=== PATIENT | male | born 1995 | race Two or more races ===

== ENCOUNTER 2016-11-04 08:32 | Emergency (ER) | payer OTHER ==
[~2016-11-04] VITALS: Ht 170.2 cm; Wt 95.3 kg
[~2016-11-04 08:32] MED LIST: PANT40TA2 PO; SUCR1TAB26 PO
[2016-11-04 08:37] VITALS: BP 135/70
== END 2016-11-04 09:22 | disposition home or self-care (01) ==
LOC: ER 08:33
DX: B35.1 Tinea unguium (principal); I86.1 Scrotal varices; J45.909 Unspecified asthma, uncomplicated; Z87.11 Personal history of peptic ulcer disease; Z87.19 Personal history of other diseases of the digestive system; Z87.442 Personal history of urinary calculi
CPT/HCPCS: A4606; Z7610

== ENCOUNTER 2018-01-29 02:25 | Emergency (ER) | payer SELFPAY ==
[~2018-01-29] VITALS: Ht 175.3 cm; Wt 81.6 kg
[~2018-01-29 02:25] MED LIST changes: -SUCR1TAB26 PO; +SUCR1TAB31 PO
--- NOTE | 2018-01-29 02:25 | NUR ---
worsening back pain x 1 month. denies trauma. VSS NAD A/OX4 ABLE TO MAKE NEEDS KNOWN. WILL CONTINUE TO MONITOR FOR ANY CHANGES DURING THE SHIFT.
[2018-01-29] MEDS ORDERED: HYDROCODONE/APAP 10/325MG 1 EA TABLET PO ONE (03:00)
[2018-01-29] MEDS ORDERED: HYDROCODONE/APAP 10/325MG 1 EA TABLET ONE (03:07)
--- NOTE | 2018-01-29 03:11 | NUR ---
OFF TO CT
[2018-01-29 04:47] VITALS: BP 135/79
== END 2018-01-29 04:48 | disposition home or self-care (01) ==
LOC: ER 02:25
DX: M54.32 Sciatica, left side (principal); M54.31 Sciatica, right side; J45.909 Unspecified asthma, uncomplicated; Z87.442 Personal history of urinary calculi; Z88.6 Allergy status to analgesic agent; Z87.11 Personal history of peptic ulcer disease; Z79.899 Other long term (current) drug therapy
CPT/HCPCS: 72131; 99284; A4606; Z7610

== ENCOUNTER 2019-05-10 21:14 | Emergency (ER) | payer SELFPAY ==
[~2019-05-10] VITALS: Ht 172.7 cm; Wt 97.5 kg
[2019-05-10 21:20] VITALS: BP 127/78
[2019-05-10] MEDS ORDERED: KETOROLAC TROMETHAMINE INJ 30 MG/ML VIAL ONE (21:39)
[2019-05-10 21:45] LABS: APPEARANCE,URINE Clear (CLEAR); BILIRUBIN,URINE SMALL (NEGATIVE); BLOOD, URINE Negative Ery/uL (NEGATIVE); COLOR,URINE Yellow (YELLOW); KETONES,URINE Negative (NEGATIVE); LEUKOCYTE ESTERASE ,URINE Negative (NEGATIVE); NITRITE, URINE Negative (NEGATIVE); PROTEIN,URINE Negative (NEGATIVE); UGLUCOSE Negative (NEGATIVE); UROBILINOGEN,URINE 0.2 EU/dL (0.2)
[2019-05-10 21:56] LABS: BACTERIA,URINE Few /HPF (None Seen); MUCUS,URINE Few /LPF (None Seen); RBC,URINE 0-2 /HPF (0-2); SQUAMOUS EPITHELIAL CELL,UR Few /HPF (None Seen); WBC,URINE 0-2 /HPF (0-3)
[2019-05-10] MEDS ORDERED: KETOROLAC TROMETHAMINE INJ 60 MG/2 ML VIAL IM ONE (22:00)
[2019-05-10] MEDS ORDERED: oxyCODONE/APAP (5/325 MG) 1 UDTAB TABLET ONE (22:27)
[2019-05-10] MEDS ORDERED: oxyCODONE/APAP (5/325 MG) 1 UDTAB TABLET PO ONE (22:30)
== END 2019-05-10 22:53 | disposition home or self-care (01) ==
LOC: ER 21:16
DX: S39.012A Strain of muscle, fascia and tendon of lower back, initial encounter (principal); J45.909 Unspecified asthma, uncomplicated; Z88.6 Allergy status to analgesic agent; Z79.899 Other long term (current) drug therapy; X58.XXXA Exposure to other specified factors, initial encounter; Y93.89 Activity, other specified; Y92.89 Other specified places as the place of occurrence of the external cause; Y99.8 Other external cause status
CPT/HCPCS: 81001; 96372; 99283; J1885; 81000-TC

== ENCOUNTER 2019-12-19 10:49 | Emergency (ER) | payer BC ==
[~2019-12-19] VITALS: Ht 172.7 cm; Wt 102.1 kg
--- NOTE | 2019-12-19 10:51 | NUR ---
came in for back pain x 3 days s/p fell off his trailer 3 feet high took tylenol w/ codeine 20 mins [employer], to ER bed 11, hooked to monitor, changed to hosp gown, warm blanket provided, awaiting MD loera.
--- NOTE | 2019-12-19 11:06 | NUR ---
Dr Du at bedside
--- NOTE | 2019-12-19 11:22 | NUR ---
wheeled out via [place] for ct scan
[2019-12-19 12:28] VITALS: BP 122/71
--- NOTE | 2019-12-19 12:28 | NUR ---
Patient discharged to home in stable condition. Written and verbal after care instructions given. Patient verbalizes understanding of instruction.
== END 2019-12-19 12:29 | disposition home or self-care (01) ==
LOC: ER 10:51
DX: S39.012A Strain of muscle, fascia and tendon of lower back, initial encounter (principal); J45.909 Unspecified asthma, uncomplicated; Z88.5 Allergy status to narcotic agent; Z79.899 Other long term (current) drug therapy; V19.3XXA Pedal cyclist (driver) (passenger) injured in unspecified nontraffic accident, initial encounter; Y93.89 Activity, other specified; Y92.89 Other specified places as the place of occurrence of the external cause; Y99.8 Other external cause status
CPT/HCPCS: 72131-TC

== ENCOUNTER 2020-04-10 13:59 | Emergency (ER) | payer SELFPAY ==
[~2020-04-10] VITALS: Ht 172.7 cm; Wt 99.8 kg
[2020-04-10 14:08] VITALS: BP 105/84
== END 2020-04-10 14:23 | disposition home or self-care (01) ==
LOC: ER 14:03
DX: L03.313 Cellulitis of chest wall (principal); J45.909 Unspecified asthma, uncomplicated; Z88.6 Allergy status to analgesic agent; Z79.899 Other long term (current) drug therapy